=== PATIENT | male | born 1940 | race Caucasian/White ===

== ENCOUNTER 2017-06-22 13:28 | Emergency (ER) | payer OTHER ==
[~2017-06-22] VITALS: Ht 177.8 cm; Wt 86.2 kg
[2017-06-22] MEDS ORDERED: PRAVASTATIN SOD80 MG PO (13:44)
[2017-06-22] MEDS ORDERED: ELIQUIS5 MG PO (13:45)
[2017-06-22] MEDS ORDERED: BISOPROLOL FUMAR5 MG PO (13:45)
[2017-06-22] MEDS ORDERED: DIGITEK125 MCG PO (13:46)
[2017-06-22] MEDS ORDERED: ARICEPT10 MG PO (13:47)
[2017-06-22] MEDS ORDERED: SYNTHROID175 MCG PO (13:48)
[2017-06-22] MEDS ORDERED: CLOPIDOGREL75 MG PO (13:50)
== END 2017-06-22 17:38 | disposition home or self-care (01) ==
LOC: ED 13:28
DX: S06.0X0A Concussion without loss of consciousness, initial encounter (principal); S16.1XXA Strain of muscle, fascia and tendon at neck level, initial encounter; G44.309 Post-traumatic headache, unspecified, not intractable; I50.9 Heart failure, unspecified; Z79.899 Other long term (current) drug therapy; V43.52XA Car driver injured in collision with other type car in traffic accident, initial encounter
CPT/HCPCS: 70450; 72125; 99284